=== PATIENT | female | born 1995 | race Two or more races ===

== ENCOUNTER → 2023-07-18 | Outpatient (CLI) | payer OTHER ==
[2023-07-18 16:03] LABS: HEMATOCRIT 32.9 % (36.0-47.0); HEMOGLOBIN 11.3 g/dl (12.0-15.5); MEAN CORPUSCULAR HEMOGLOBIN 31.7 pg (27.0-33.0); MEAN CORPUSCULAR HGB CONC 34.3 g/dl (32.0-36.5); MEAN CORPUSCULAR VOLUME 92.2 fl (80.0-96.0); PLATELET COUNT, AUTOMATED 294 10^3/uL (150-450); RED BLOOD COUNT 3.57 10^6/uL (4.00-5.40); WHITE BLOOD COUNT 9.1 10^3/uL (4.0-10.0)
[2023-07-18 17:25] LABS: CHLAMYDIA DNA AMPLIFICATION NEGATIVE (NEGATIVE); GC DNA AMPLIFICATION NEGATIVE (NEGATIVE)
== END ==
LOC: M PLALAB 13:28
PROVIDERS: ATTEND Obstetrics & Gynecology
DX: Z34.82 Encounter for supervision of other normal pregnancy, second trimester (principal)
CPT/HCPCS: 36415; 82950; 85027; 86850; 86900; 86901; 87810; 87850; 90471; 90715; G0463

== ENCOUNTER → 2023-09-15 | Outpatient (REF) | payer OTHER ==
[~2023-09-15] MED LIST: ACET-897 PO; PRENTAB9 PO
== END ==
LOC: M PLALAB 12:17
PROVIDERS: ATTEND Advanced Practice Midwife
DX: O34.211 Maternal care for low transverse scar from previous cesarean delivery (principal); Z3A.00 Weeks of gestation of pregnancy not specified

== ENCOUNTER 2023-09-18 15:39 | Outpatient (CLI) | payer OTHER ==
[~2023-09-18] VITALS: Ht 157.5 cm; Wt 73.4 kg
[2023-09-18] MEDS ORDERED: PRENTAB9 PO (16:00)
[2023-09-18] MEDS ORDERED: ACET-897 PO (16:01)
[2023-09-18 16:02] VITALS: BP 128/77
[2023-09-18 17:51] LABS: APPEARANCE, URINE CLEAR (CLEAR); BACTERIA, URINE AUTO NEGATIVE (NEGATIVE); BILIRUBIN, URINE AUTO NEGATIVE (NEGATIVE); BLOOD, URINE BLOOD NEGATIVE (NEGATIVE); COLOR, URINE STRAW (YELLOW); GLUCOSE, URINE (UA) AUTO NEGATIVE (NEGATIVE); KETONE, URINE AUTO 1+ mg/dL (NEGATIVE); LEUKOCYTE ESTERASE, URINE AUTO NEGATIVE (NEGATIVE); NITRITE, URINE AUTO NEGATIVE (NEGATIVE); PROTEIN, URINE AUTO NEGATIVE (NEGATIVE); RBC, URINE AUTO 0 /HPF (0-3); SPECIFIC GRAVITY URINE AUTO 1.006 (1.002-1.035); SQUAMOUS EPITHELIAL CELL UR AU 0 /HPF (0-6); UROBILINOGEN, URINE AUTO 0.2 mg/dL (0.0-2.0); WBC, URINE AUTO 1 /HPF (0-3)
[2023-09-18] MEDS ORDERED: FLUCONAZOLE 50MG TABLET PO ONE (19:05)
[2023-09-18 19:25] VITALS: BP 135/75
== END 2023-09-18 19:36 | disposition home or self-care (01) ==
LOC: M LDO 15:39
PROVIDERS: ATTEND Advanced Practice Midwife
DX: O47.03 False labor before 37 completed weeks of gestation, third trimester (principal); O34.218 Maternal care for other type scar from previous cesarean delivery; O23.593 Infection of other part of genital tract in pregnancy, third trimester; B37.9 Candidiasis, unspecified; O09.293 Supervision of pregnancy with other poor reproductive or obstetric history, third trimester; Z3A.36 36 weeks gestation of pregnancy
CPT/HCPCS: 59025; 81001; 87070; 87086; G0463

== ENCOUNTER 2023-10-10 13:29 | Outpatient (CLI) | payer OTHER ==
[~2023-10-10] VITALS: Ht 162.6 cm; Wt 72.2 kg
[2023-10-10 13:54] VITALS: BP 133/76
[2023-10-10 16:00] VITALS: BP 134/73
[2023-10-10 17:24] VITALS: BP 130/78
[2023-10-10] MEDS ORDERED: FAMO20TA PO (21:33)
== END 2023-10-10 17:42 | disposition home or self-care (01) ==
LOC: M LDO 13:29
PROVIDERS: ATTEND Obstetrics & Gynecology
DX: O47.1 False labor at or after 37 completed weeks of gestation (principal); Z91.018 Allergy to other foods; O34.219 Maternal care for unspecified type scar from previous cesarean delivery; Z3A.39 39 weeks gestation of pregnancy
CPT/HCPCS: 59025; G0463

== ENCOUNTER 2023-10-10 21:18 | Inpatient (IN) | payer OTHER ==
[~2023-10-10] VITALS: Ht 162.6 cm; Wt 72.2 kg
[2023-10-10 21:28] VITALS: BP 135/79
[2023-10-10] MEDS ORDERED: FAMO20TA PO (21:33)
[2023-10-10] MEDS ORDERED: LIDOCAINE 1% MDV 20ML VIAL INFIL PRN (21:55)
[2023-10-10] MEDS ORDERED: CARBOPROST TROMETHAMINE 250 MCG/ML AMP IM PRN (21:55)
[2023-10-10] MEDS ORDERED: TRANEXAMIC ACID INJection 1,000 MG in NS 100 ML IV PRN (21:55)
[2023-10-10 22:13] LABS: HEMATOCRIT 31.9 % (36.0-47.0); HEMOGLOBIN 11.3 g/dl (12.0-15.5); MEAN CORPUSCULAR HEMOGLOBIN 29.7 pg (27.0-33.0); MEAN CORPUSCULAR HGB CONC 35.4 g/dl (32.0-36.5); MEAN CORPUSCULAR VOLUME 83.9 fl (80.0-96.0); PLATELET COUNT, AUTOMATED 276 10^3/uL (150-450); WHITE BLOOD COUNT 11.6 10^3/uL (4.0-10.0)
[2023-10-10] MEDS: PROMETHAZINE 25MG/ML 1ML VIAL IV ONE (23:02)
[2023-10-10] MEDS: BUTORPHANOL 2 MG/ML 1ML VIAL IV ONE (23:02)
[2023-10-10] MEDS: LR 1,000 ML IV SCH (23:02)
[2023-10-10 23:18] VITALS: BP 102/57
[2023-10-10 23:49] VITALS: BP 96/54
[2023-10-11] VITALS (75 sets, daily range): BP systolic 86–151; BP diastolic 49–81; O2SAT 96
[2023-10-11] MEDS ORDERED: EPIDURAL/PCA KEYS XX PRN (05:55)
[2023-10-11] MEDS ORDERED: NALOXONE INJ 0.4MG/1ML VIAL IV PRN (05:55)
[2023-10-11] MEDS ORDERED: LR 500 ML IV PRN (05:55)
[2023-10-11] MEDS ORDERED: diphenhydrAMINE 50MG/ML VIAL IV PRN (05:55)
[2023-10-11] MEDS: FENTANYL/ROPIVACAINE/NACL BAG 100 ML EPIDURAL SCH (06:12)
[2023-10-11] MEDS: LACTATED RINGER'S 1000 ML IV STA (06:47)
[2023-10-11] MEDS: OXYTOCIN DRIP 30 UNITS in IV 1 EA IV SCH (08:06)
[2023-10-11] MEDS: CALCIUM CARBONATE 500 MG CHEW U/D PO PRN (11:02)
[2023-10-11] MEDS: ONDANSETRON 4MG 2ML VIAL IV PRN (14:02)
[2023-10-11] MEDS: ePHEDrine SULFATE 25 MG/5 ML(5MG/ML) SYRINGE IVP PRN (15:43)
[2023-10-11] MEDS: METHYLERGONOVINE MALEATE 0.2MG/ML 1ML VIAL IM PRN (19:49)
[2023-10-11] MEDS: OXYTOCIN DRIP 30 UNITS in IV 1 EA IV PRN (19:50)
[2023-10-11] MEDS ORDERED: RHOGAM 300MCG (1500IU) INJ IM SCH (20:45)
[2023-10-11] MEDS ORDERED: METHYLERGONOVINE MALEATE 0.2 MG TAB PO PRN (20:45)
[2023-10-11] MEDS ORDERED: DIBUCAINE 1% OINTMENT 30GM TOP PRN (20:45)
[2023-10-11] MEDS ORDERED: DOCUSATE SODIUM 100MG CAPSULE PO PRN (20:45)
[2023-10-11] MEDS: IBUPROFEN 600MG TAB PO PRN (21:59)
[2023-10-12] MEDS: ACETAMINOPHEN TAB 650MG DOSE (2X325MG) PO PRN (02:42)
[2023-10-12 05:51] VITALS: BP 104/48; O2SAT 100
[2023-10-12] MEDS: PRENATAL VITAMINS CHEWABLE TABLET PO SCH (08:20)
[2023-10-12] MEDS: ACETAMINOPHEN 500 MG TAB PO PRN (08:22)
[2023-10-12] MEDS: IBUPROFEN 800 MG TAB PO PRN (15:22)
[2023-10-12 18:00] VITALS: BP 122/66; O2SAT 96
[2023-10-13 06:00] VITALS: BP 117/61; O2SAT 97
[2023-10-13] MEDS: MEASLES,MUMPS,RUBELLA VACCINE INJ (MMR-II) SC.IMMUN ONE (07:12)
== END 2023-10-13 11:20 | disposition home or self-care (01) | DRG 807 ==
LOC: M LDO 21:18 → M LDI 10-11 05:46 → M OBS 10-11 21:40
PROVIDERS: ADMIT Obstetrics & Gynecology; ATTEND Advanced Practice Midwife
PROC: 10E0XZZ Delivery of Products of Conception, External Approach (ICD-10-PCS; principal; 2023-10-11)
PROC: 0KQM0ZZ Repair Perineum Muscle, Open Approach (ICD-10-PCS; 2023-10-11)
DX: O34.219 Maternal care for unspecified type scar from previous cesarean delivery (principal); Z37.0 Single live birth; Z3A.39 39 weeks gestation of pregnancy; O69.82X0 Labor and delivery complicated by other cord entanglement, without compression, not applicable or unspecified; O70.1 Second degree perineal laceration during delivery

== ENCOUNTER → 2024-06-24 | Outpatient (CLI) | payer OTHER ==
[~2024-06-24] MED LIST changes: +FAMO20TA PO
== END ==
LOC: M WUC 10:48
PROVIDERS: ATTEND Nurse Practitioner Family
DX: R05.9 Cough, unspecified (principal)

== ENCOUNTER → 2024-10-02 | Outpatient (REF) | payer OTHER | LOC: M SFHCWAGY 13:23 | PROVIDERS: ATTEND Nurse Practitioner Family | DX: Z12.4 Encounter for screening for malignant neoplasm of cervix (principal); Z11.51 Encounter for screening for human papillomavirus (HPV); Z77.9 Other contact with and (suspected) exposures hazardous to health; Z01.419 Encounter for gynecological examination (general) (routine) without abnormal findings ==

== ENCOUNTER → 2024-11-20 | Outpatient (CLI) | payer OTHER | LOC: M PLALAB 14:08 | PROVIDERS: ATTEND Nurse Practitioner Family | DX: Z32.01 Encounter for pregnancy test, result positive (principal) ==

== ENCOUNTER → 2024-11-22 | Outpatient (CLI) | payer OTHER | LOC: M PLALAB 13:59 | PROVIDERS: ATTEND Nurse Practitioner Family | DX: Z32.01 Encounter for pregnancy test, result positive (principal) ==

== ENCOUNTER → 2024-12-13 | Outpatient (CLI) | payer OTHER ==
[2024-12-13 17:34] LABS: HEMATOCRIT 36.5 % (36.0-47.0); HEMOGLOBIN 12.6 g/dl (12.0-15.5); MEAN CORPUSCULAR HEMOGLOBIN 30.3 pg (27.0-33.0); MEAN CORPUSCULAR HGB CONC 34.5 g/dl (32.0-36.5); MEAN CORPUSCULAR VOLUME 87.7 fl (80.0-96.0); PLATELET COUNT, AUTOMATED 393 10^3/uL (150-450); RED BLOOD COUNT 4.16 10^6/uL (4.00-5.40); WHITE BLOOD COUNT 7.6 10^3/uL (4.0-10.0)
[2024-12-13 18:39] LABS: Trichomonas vaginalis (AMP) NOT DETECTED (NEGATIVE)
[2024-12-13 18:44] LABS: HEPATITIS C VIRUS ABY INDEX 0.22 INDEX (<0.8); HIV 1&2 SCREEN NEGATIVE (NEGATIVE)
[2024-12-13 19:03] LABS: GC DNA AMPLIFICATION NEGATIVE (NEGATIVE)
== END ==
LOC: M PLALAB 14:41
PROVIDERS: ATTEND Advanced Practice Midwife
DX: Z34.81 Encounter for supervision of other normal pregnancy, first trimester (principal)

== ENCOUNTER → 2025-01-10 | Outpatient (CLI) | payer OTHER | LOC: M PLALAB 13:41 | PROVIDERS: ATTEND Obstetrics & Gynecology | DX: Z34.80 Encounter for supervision of other normal pregnancy, unspecified trimester (principal) ==

== ENCOUNTER → 2025-03-11 | Outpatient (CLI) | payer OTHER | LOC: M RAD 15:10 | PROVIDERS: ATTEND Advanced Practice Midwife | DX: Z34.82 Encounter for supervision of other normal pregnancy, second trimester (principal) ==

== ENCOUNTER → 2025-05-07 | Outpatient (CLI) | payer OTHER ==
[2025-05-07 11:05] LABS: PLATELET COUNT, AUTOMATED 295 10^3/uL (150-450)
[2025-05-07 11:38] LABS: GLUCOSE CHALLENGE TEST 1 HOUR 70 MG/DL (LESS THAN 140)
[2025-05-07 12:09] LABS: HIV 1&2 SCREEN NEGATIVE (NEGATIVE)
[2025-05-07 12:17] LABS: HEPATITIS C VIRUS ABY INDEX < 0.02 INDEX (<0.8)
[2025-05-07 12:56] LABS: Trichomonas vaginalis (AMP) NOT DETECTED (NEGATIVE)
[2025-05-07 13:20] LABS: GC DNA AMPLIFICATION NEGATIVE (NEGATIVE)
== END ==
LOC: M PLALAB 08:39
PROVIDERS: ATTEND Obstetrics & Gynecology
DX: O34.211 Maternal care for low transverse scar from previous cesarean delivery (principal); O26.22 Pregnancy care for patient with recurrent pregnancy loss, second trimester; Z36.89 Encounter for other specified antenatal screening; Z3A.27 27 weeks gestation of pregnancy

== ENCOUNTER 2025-05-13 13:52 | Outpatient (CLI) | payer OTHER ==
[~2025-05-13] VITALS: Ht 162.6 cm; Wt 69.8 kg
[2025-05-13 14:14] VITALS: BP 119/66
[2025-05-13] MEDS: METOCLOPRAMIDE 10 MG TAB PO ONE (14:53)
[2025-05-13 15:04] LABS: PLATELET COUNT, AUTOMATED 202 10^3/uL (150-450)
[2025-05-13 15:30] LABS: LDH LACTATE DEHYDROGENASE 153 U/L (120-246)
[2025-05-13 15:32] LABS: ALT/SGPT 17 U/L (7.0-40); AST/SGOT 19 U/L (<34); CALCIUM LEVEL 8.0 MG/DL (8.5-10.1); CARBON DIOXIDE LEVEL 23 MMOL/L (20-31); CHLORIDE LEVEL 102 MMOL/L (98-107); CREATININE FOR GFR 0.64 MG/DL (0.55-1.30); GLOMERULAR FILTRATION RATE > 90.0 (>60); POTASSIUM SERUM 3.5 MMOL/L (3.5-5.1); SODIUM LEVEL 132 MMOL/L (136-145)
[2025-05-13 15:47] LABS: TOTAL PROTEIN,RANDOM URINE < 6.0 MG/DL (0.0-14.0)
== END 2025-05-13 16:30 | disposition home or self-care (01) ==
LOC: M LDO 13:52
PROVIDERS: ATTEND Obstetrics & Gynecology
DX: O26.893 Other specified pregnancy related conditions, third trimester (principal); R03.0 Elevated blood-pressure reading, without diagnosis of hypertension; Z3A.28 28 weeks gestation of pregnancy
CPT/HCPCS: 36415; 59025; 80053; 81002; 82570; 83615; 84156; 84550; 85027; 87086; G0463

== ENCOUNTER → 2025-05-13 | Outpatient (REF) | payer OTHER | LOC: M SFHCWAGY 10:03 | PROVIDERS: ATTEND Nurse Practitioner Family | DX: R39.9 Unspecified symptoms and signs involving the genitourinary system (principal) ==

== ENCOUNTER → 2025-07-02 | Outpatient (REF) | payer OTHER | LOC: M PLALAB 11:17 | PROVIDERS: ATTEND Advanced Practice Midwife | DX: Z53.9 Procedure and treatment not carried out, unspecified reason (principal) ==

== ENCOUNTER → 2025-07-03 | Outpatient (REF) | payer OTHER | LOC: M SFHCWAGY 10:18 | PROVIDERS: ATTEND Advanced Practice Midwife | DX: O34.211 Maternal care for low transverse scar from previous cesarean delivery (principal); Z3A.00 Weeks of gestation of pregnancy not specified ==

== ENCOUNTER 2025-07-31 10:34 | Inpatient (IN) | payer OTHER ==
[~2025-07-31] VITALS: Ht 162.6 cm; Wt 75.0 kg
[2025-07-31] VITALS (38 sets, daily range): BP systolic 78–179; BP diastolic 41–113; O2SAT 96
[2025-07-31] MEDS ORDERED: AMOX875T PO (10:59)
[2025-07-31 12:24] LABS: PLATELET COUNT, AUTOMATED 239 10^3/uL (150-450)
[2025-07-31] MEDS ORDERED: OXYTOCIN DRIP 30 UNITS in IV 1 EA IV PRN (13:00)
[2025-07-31] MEDS ORDERED: OXYTOCIN INJ 10UNITS/ML 1ML VIAL IM PRN (13:00)
[2025-07-31] MEDS ORDERED: LIDOCAINE 1% MDV 20 ML VIAL INFIL PRN (13:00)
[2025-07-31] MEDS ORDERED: TRANEXAMIC ACID INJection 1,000 MG in NS 100 ML IV PRN (13:00)
[2025-07-31 13:21] LABS: HIV 1&2 SCREEN NEGATIVE (NEGATIVE)
[2025-07-31 13:28] LABS: HEPATITIS C VIRUS ABY INDEX 0.05 INDEX (<0.8)
[2025-07-31] MEDS ORDERED: NALOXONE INJ 0.4 MG/1 ML VIAL IV PRN (13:55)
[2025-07-31] MEDS ORDERED: diphenhydrAMINE 50 MG/ML VIAL IV PRN (13:55)
[2025-07-31] MEDS ORDERED: ONDANSETRON 4MG/2ML VIAL IV PRN (13:55)
[2025-07-31] MEDS ORDERED: EPIDURAL/PCA KEYS XX PRN (13:55)
[2025-07-31] MEDS: FENTANYL/ROPIVACAINE/NACL BAG 100 ML EPIDURAL SCH (14:56)
[2025-07-31] MEDS: LR 1,000 ML IV SCH ×2 (14:57→19:05)
[2025-07-31] MEDS: LR 500 ML IV PRN (14:57)
[2025-07-31] MEDS: OXYTOCIN DRIP 30 UNITS in IV 1 EA IV SCH (18:19)
[2025-07-31] MEDS: CALCIUM CARBONATE 500 MG CHEW U/D PO PRN (19:32)
[2025-07-31] MEDS: OXYTOCIN DRIP 30 UNITS in IV 1 EA IV PRN (21:04)
[2025-07-31] MEDS: METHYLERGONOVINE MALEATE 0.2 MG/ML 1 ML VIAL IM PRN (21:13)
[2025-07-31] MEDS ORDERED: RHOGAM 300MCG (1500IU) INJ IM SCH (21:30)
[2025-07-31] MEDS ORDERED: DIBUCAINE 1% OINTMENT 30 GM TOP PRN (21:30)
[2025-07-31] MEDS ORDERED: IBUPROFEN 600 MG TAB PO PRN (21:30)
[2025-07-31] MEDS ORDERED: METHYLERGONOVINE MALEATE 0.2 MG TAB PO PRN (21:30)
[2025-07-31] MEDS ORDERED: DOCUSATE SODIUM 100 MG CAPSULE PO PRN (21:30)
[2025-07-31] MEDS ORDERED: ACETAMINOPHEN 500 MG TAB PO PRN (21:30)
[2025-07-31] MEDS ORDERED: OXYTOCIN DRIP 30 UNITS in IV 1 EA IV SCH (21:30)
[2025-07-31] MEDS ORDERED: ACETAMINOPHEN 325 MG TAB PO PRN (21:30)
[2025-08-01] MEDS: IBUPROFEN 800 MG TAB PO PRN (05:09)
[2025-08-01 05:40] VITALS: BP 120/72; O2SAT 99
[2025-08-01 08:02] LABS: PLATELET COUNT, AUTOMATED 199 10^3/uL (150-450)
[2025-08-01 09:00] VITALS: BP 120/72; TEMP 98.2; O2SAT 99
[2025-08-01] MEDS: PRENATAL VITAMINS CHEWABLE TABLET PO SCH (09:02)
[2025-08-01 18:00] VITALS: BP 122/69; O2SAT 97
[2025-08-02 05:16] VITALS: BP 127/60; O2SAT 98
[2025-08-02] MEDS: MEASLES,MUMPS,RUBELLA VACCINE INJ (MMR-II) SC.IMMUN ONE (09:00)
== END 2025-08-02 13:25 | disposition home or self-care (01) | DRG 807 ==
LOC: M LDO 10:34 → M LDI 11:54 → M OBS 23:05
PROVIDERS: ADMIT Obstetrics & Gynecology; ATTEND Obstetrics & Gynecology
PROC: 10E0XZZ Delivery of Products of Conception, External Approach (ICD-10-PCS; principal; 2025-07-31)
PROC: 10907ZC Drainage of Amniotic Fluid, Therapeutic from Products of Conception, Via Natural or Artificial Opening (ICD-10-PCS; 2025-07-31)
PROC: 0HQ9XZZ Repair Perineum Skin, External Approach (ICD-10-PCS; 2025-07-31)
DX: O34.219 Maternal care for unspecified type scar from previous cesarean delivery (principal); Z37.0 Single live birth; Z3A.39 39 weeks gestation of pregnancy; O77.0 Labor and delivery complicated by meconium in amniotic fluid; O70.0 First degree perineal laceration during delivery